=== PATIENT | female | born 1985 | race Two or more races ===

== ENCOUNTER 2024-08-09 22:58 | Emergency (ER) | payer OTHER ==
[~2024-08-09] VITALS: Ht 162.6 cm; Wt 63.5 kg
[2024-08-10 02:54] LABS: HEMOGLOBIN 12.1 g/dL (12.0-15.00); MEAN CELL VOLUME 83.9 fL (80.00-100.00); MEAN CORPUSCULAR HEMOGLOBIN 28.1 pg (27.00-32.0); MEAN CORPUSCULAR HGB CONC 33.5 g/dl (32.0-36.0); PLATELET COUNT 254 K/uL (150-450); RED BLOOD COUNT 4.29 M/uL (4.00-6.00)
[2024-08-10 03:01] LABS: ALBUMIN 3.2 gm/dL (3.4-5.0); BILIRUBIN TOTAL 0.24 mg/dL (0.3-1.2); CALCIUM 8.4 mg/dL (8.5-10.1); CREATININE SERUM 0.7 mg/dL (0.55-1.02); GFR 94.15; POTASSIUM 4.17 mEq/L (3.5-5.1); TOTAL PROTEIN 7.2 gm/dL (6.4-8.2)
[2024-08-10 04:28] LABS: PH,URINE 6.5 (5.0-8.0); URINE APPEARANCE Clear; URINE BILIRRUBIN Negative (NEGATIVE); URINE BLOOD Trace; URINE COLOR Yellow; URINE GLUCOSE Negative (NEGATIVE); URINE KETONE Negative (NEGATIVE); URINE LEUKOCYTE Negative; URINE NITRATE Negative; URINE PROTEIN Negative (NEGATIVE); URINE UROBILINOGEN 0.2 E.U./dl
[2024-08-10 05:11] LABS: URINE BACTERIA 5668.2 uL (0.0-1933); URINE CAST 3.09 uL (0.0-1.40); URINE EPITHELIAL CELLS 57.6 uL (0.0-38.8); URINE RBC 26.5 uL (0.0-20.8); URINE WBC 34.1 uL (0.0-23.2)
[2024-08-10] MEDS ORDERED: CEPHALEXIN500 M1 PO (05:37)
[2024-08-10] MEDS ORDERED: CEFTRIAXONE SODIUM 1,000 MG VIAL IV ONE (05:45)
[2024-08-10] MEDS ORDERED: CEFTRIAXONE SODIUM 1,000 MG VIAL ONE (05:47)
== END 2024-08-10 05:52 | disposition home or self-care (01) ==
LOC: ER 22:58
PROVIDERS: General Practice
DX: R55 Syncope and collapse (principal); N39.0 Urinary tract infection, site not specified; Z88.6 Allergy status to analgesic agent